=== PATIENT | male | born 1975 | race Caucasian/White ===

== ENCOUNTER 2022-12-09 14:01 | Inpatient (IN) | payer OTHER ==
[~2022-12-09] VITALS: Ht 188 cm; Wt 98.4 kg
--- NOTE | 2022-12-09 14:15 | NUR ---
[id number] C/O PALPITATION X2 HRS AGO AFTER TAKING NALTREXONE HCL. FOR ALCOHOL CESSATION.
--- NOTE | 2022-12-09 14:21 | NUR ---
DR MORRIS AT BEDSIDE FOR EVAL.
[2022-12-09] MEDS ORDERED: IV NS 0.9% 1,000 ML BAG IV ONE (14:30)
[2022-12-09] MEDS ORDERED: LORAZEPAM INJ 2 MG/ML VIAL IV ONE (14:30)
[2022-12-09] MEDS ORDERED: LORAZEPAM INJ 2 MG/ML VIAL ONE (14:32)
--- NOTE | 2022-12-09 14:40 | NUR ---
BLOOD DROW AND SENT TO LAB
[2022-12-09 14:51] LABS: BASOPHILS % (AUTO) 0.3 % (0.0-2.0); EOSINOPHILS % (AUTO) 1.2 % (0.0-6.0); HEMATOCRIT 40 % (39-51); HEMOGLOBIN 13.8 g/dL (13.5-17.5); LYMPHOCYTES # (AUTO) 0.7 K/uL (0.8-4.8); LYMPHOCYTES % (AUTO) 8.8 % (20.0-44.0); MEAN CORPUSCULAR HGB CONC 34 g/dl (31.0-36.0); MEAN CORPUSCULAR VOLUME 95 fL (80-96); MONOCYTES # (AUTO) 0.5 K/uL (0.1-1.30); MONOCYTES % (AUTO) 6.6 % (2.0-12.0); NEUTROPHILS # (AUTO) 6.9 K/uL (1.8-8.9); NEUTROPHILS % (AUTO) 83.1 % (43.0-81.0); PLATELET COUNT (AUTO) 249 K/uL (150-450); RED BLOOD CELL COUNT(AUTO) 4.25 MIL/uL (4.5-6.0); WHITE BLOOD COUNT (AUTO) 8.3 K/uL (4.3-11.0)
[2022-12-09 15:09] LABS: ALANINE AMINOTRANSFERASE 85 U/L (12-78); ALBUMIN 4.3 g/dL (3.4-5.0); ALKALINE PHOSPHATASE 58 U/L (46-116); ASPARTATE AMINOTRANSFERASE 52 U/L (15-37); BILIRUBIN,DIRECT 0.2 mg/dL (0.0-0.2); BILIRUBIN,TOTAL 0.8 mg/dL (0.2-1.0); CALCIUM, SERUM 9.8 mg/dL (8.5-10.1); CARBON DIOXIDE 22 mmol/L (21-32); CHLORIDE 103 mmol/L (98-107); CREATININE 0.9 mg/dL (0.6-1.3); GLUCOSE 142 mg/dL (74-106); POTASSIUM 4.2 mmol/L (3.5-5.1); SODIUM SERUM 139 mmol/L (136-145); TOTAL PROTEIN, SERUM 7.6 g/dL (6.4-8.2); UREA NITROGEN, BLOOD 15 mg/dL (7-18)
--- NOTE | 2022-12-09 15:19 | NUR ---
MARTHA JACKSON ([facility] )
[2022-12-09] MEDS ORDERED: ASPIRIN 325 MG TABLET PO ONE (16:00)
[2022-12-09] MEDS ORDERED: ASPIRIN 325 MG TABLET ONE (16:01)
--- NOTE | 2022-12-09 17:17 | NUR ---
UA SENT TO LAB
--- NOTE | 2022-12-09 18:17 | NUR ---
WATING FOR TELMETERY BED
--- NOTE | 2022-12-09 19:22 | NUR ---
HAND OFF TO VALERIE RIVERS
[2022-12-09 19:33] VITALS: O2SAT 99
--- NOTE | 2022-12-09 19:34 | NUR ---
Denisse AOx4, able to express his concerns. Patient made aware of plan ofcare, verbalized agreement.
--- NOTE | 2022-12-09 19:56 | NUR ---
RM 326-1
[2022-12-09 20:00] VITALS: BP 137/93; TEMP 98.5; O2SAT 97
[2022-12-09] MEDS ORDERED: IV NS 0.9% 1,000 ML IV PRN (20:00)
[2022-12-09] MEDS ORDERED: MORPHINE SULFATE INJ 2 MG/ML DISP.SYRIN IV PRN (20:00)
[2022-12-09] MEDS ORDERED: ACETAMINOPHEN 325 MG TABLET PO PRN (20:00)
[2022-12-09] MEDS ORDERED: ONDANSETRON HCL/PF 4 MG/2 ML VIAL IVP PRN (20:00)
--- NOTE | 2022-12-09 20:11 | NUR ---
SYSTEMS DEVELOPMENT CONSULTANTSECRETARY OF STATE NOTES RECEIVED PATIENT FROM ER AT 2010. PATIENT IS A/O TIMES 4. NO PAIN NOTED. NO SOB NOTED. NO DISTRESS NOTED. ON TELE MONITOR READING SR 67. IV ACCESS ON THE LAC # 20 INTACT AND RUNNING NS AT 75 ML/HR. PATIENT IS AMBULATORY AND ABLE TO MAKE NEEDS KNOWN. NO DISCOMFORT NOTED AT THIS TIME. NO SKIN ISSUE NOTED. ALL THE BELONGINGS ACCOUNTED AND SIGNED FOR. EDUCATE THE PATIENT HOW TO USE CALL LIGHT . PATIENT VERBALIZED UNDERSTANDING. ALL SAFETY MEASURES IN PLACE. BED LOCKED IN THE LOWEST POSITION. CALL LIGHT AN DTABLE IN EASY REACH. SIDE RAILS UP TIMES 2. WILL CONTINUE TO MONITOR CLOSELY.
--- NOTE | 2022-12-09 20:14 | NUR ---
PT TRANSPORTED TO [facility] VIA [facility] Addendum: 12/09/22 at 2018 by MONIE PATIENT TRANSPORTED TO [facility] VIA [facility], WITH EMT AND RN
[2022-12-09] MEDS ORDERED: ENOXAPARIN SODIUM 40 MG/0.4 ML DISP.SYRIN SQ SCH (21:00)
--- NOTE | 2022-12-09 21:00 | NUR ---
RN NOTES AINSLEY FROM LAB CALLED AND REPORTED LACTIC ACID LEVEL OF 2.[address] ROMERO AT 2114 NO NEW ORDER GIVEN.
[2022-12-09] MEDS: IV NS 0.9% 1,000 ML IV SCH (23:03)
[2022-12-10] VITALS: BP 118/71; TEMP 98.4; O2SAT 96
[2022-12-10 04:00] VITALS: BP 127/85; TEMP 98; O2SAT 96
[2022-12-10] MEDS: IV NS 0.9% 1,000 ML IV SCH ×2 (04:05→10:26)
[2022-12-10 06:13] LABS: BASOPHILS % (AUTO) 0.5 % (0.0-2.0); EOSINOPHILS % (AUTO) 3.9 % (0.0-6.0); HEMATOCRIT 39 % (39-51); HEMOGLOBIN 12.6 g/dL (13.5-17.5); LYMPHOCYTES # (AUTO) 1.2 K/uL (0.8-4.8); LYMPHOCYTES % (AUTO) 24.8 % (20.0-44.0); MEAN CORPUSCULAR HGB CONC 33 g/dl (31.0-36.0); MEAN CORPUSCULAR VOLUME 97 fL (80-96); MONOCYTES # (AUTO) 0.5 K/uL (0.1-1.30); MONOCYTES % (AUTO) 11.4 % (2.0-12.0); NEUTROPHILS # (AUTO) 2.8 K/uL (1.8-8.9); NEUTROPHILS % (AUTO) 59.4 % (43.0-81.0); PLATELET COUNT (AUTO) 237 K/uL (150-450); RED BLOOD CELL COUNT(AUTO) 3.99 MIL/uL (4.5-6.0); WHITE BLOOD COUNT (AUTO) 4.7 K/uL (4.3-11.0)
--- NOTE | 2022-12-10 06:55 | NUR ---
BUMBOATER CLOSING NOTES PATIENT IS A/O TIMES 4. NO PAIN NOTED. NO SOB NOTED. NO DISTRESS NOTED. ON TELE MONITOR READING SB 42 WHILE SLEEPING. IV ACCESS ON THE LAC # 20 INTACT AND RUNNING NS AT 175 ML/HR. PATIENT IS AMBULATORY AND ABLE TO MAKE NEEDS KNOWN. NO DISCOMFORT NOTED AT THIS TIME. NO SKIN ISSUE NOTED. REMIND THE PATIENT HOW TO USE CALL LIGHT . PATIENT VERBALIZED UNDERSTANDING. ALL SAFETY MEASURES IN PLACE. BED LOCKED IN THE LOWEST POSITION. ALL DUE MEDS GIVEN ORDER. CALL LIGHT AND TABLE IN EASY REACH. SIDE RAILS UP TIMES 2. WILL ENDORSE FOR BLAIRE.
[2022-12-10 06:57] LABS: ALBUMIN 3.5 g/dL (3.4-5.0); BILIRUBIN,TOTAL 0.6 mg/dL (0.2-1.0); CREATININE 0.7 mg/dL (0.6-1.3); MAGNESIUM 1.8 mg/dL (1.8-2.4); PHOSPHORUS 3.7 mg/dL (2.5-4.9); POTASSIUM 4.2 mmol/L (3.5-5.1); TOTAL PROTEIN, SERUM 6.5 g/dL (6.4-8.2)
[2022-12-10] MEDS ORDERED: FLUO40CA49 PO (07:37)
[2022-12-10 08:00] VITALS: BP 122/87; TEMP 97.8; O2SAT 98
--- NOTE | 2022-12-10 08:36 | NUR ---
FOUNDER AND CHIEF EXECUTIVE OFFICER OPENING NOTE (DAY SHIFT) RECEIVED PATIENT IN BED, AWAKE. PATIENT IS A/O TIMES 4. NO PAIN NOTED. NO SOB NOTED. NO DISTRESS NOTED. ON TELE MONITOR READING SR 68. IV ACCESS ON THE LAC # 20 GAUGE, INTACT, PATENT, AND INFUSING NS AT 175 ML/HR. PATIENT IS AMBULATORY AND ABLE TO MAKE NEEDS KNOWN. GOT UP OOB AND WALKED TO BATHROOM WITH STEADY, STRONG GAIT. NO DISCOMFORT NOTED AT THIS TIME. NO SKIN ISSUE NOTED. PATIENT VERBALIZED UNDERSTANDING OF SAFETY PROTOCOLS. ALL SAFETY MEASURES IN PLACE. BED LOCKED IN THE LOWEST POSITION. CALL LIGHT AND BED SIDE TABLE IN EASY REACH. SIDE RAILS UP TIMES 2. WILL CONTINUE TO MONITOR AND CARE FOR PATIENT PER MD's POC.
[2022-12-10] MEDS ORDERED: ASPIRIN 81 MG TAB.CHEW PO SCH (09:00)
[2022-12-10] MEDS ORDERED: ATORVASTATIN 10 MG TABLET PO SCH (09:00)
[2022-12-10 09:16] LABS: CHOLESTEROL 172 mg/dL (<200); HDL CHOLESTEROL 70 mg/dL (40-60); LDL 86 mg/dL (0-99); TRIGLYCERIDES 69 mg/dL (30-150)
[2022-12-10] MEDS ORDERED: IOHEXOL-350 100 ML VIAL IV ONE (10:51)
[2022-12-10] MEDS ORDERED: IV NS 0.9% 250 ML IV ONE (10:51)
[2022-12-10] MEDS ORDERED: CT SWABBABLE VALVE TRANS SET 1 EA INFUS.SET MC ONE (10:51)
[2022-12-10] MEDS ORDERED: NITROGLYCERIN 0.4 MG/TAB BOTTLE ONE (10:51)
[2022-12-10 12:00] VITALS: BP 124/76; TEMP 98; O2SAT 98
--- NOTE | 2022-12-10 14:42 | NUR ---
VENEER SUPERVISORFITNESS CONSULTANT TO HOME NOTE Patient tolerated well the removal of the #20 gauge PIV catheter fully intact from his left antecubital fossa space without any signs of complications of IV therapy. Patient demonstrated understanding of discharge home care instructions using the teach back method in his own words. Patient departed the [facility] of [facility], on foot walking with steady gait to private car bound for his home at 14:30 hours.
== END 2022-12-10 14:30 | disposition home or self-care (01) | DRG 281 ==
LOC: ER 14:49 → TELE 19:59
PROVIDERS: ADMIT Internal Medicine
DX: R00.2 Palpitations (principal); I21.A1 Myocardial infarction type 2; E87.20 Acidosis, unspecified; Z88.0 Allergy status to penicillin; F41.9 Anxiety disorder, unspecified; F41.0 Panic disorder [episodic paroxysmal anxiety]; F19.90 Other psychoactive substance use, unspecified, uncomplicated
CPT/HCPCS: 36415; 71045-TC; 75574; 80048-TC; 80053-TC; 80061-TC; 80076-TC; 82550-TC; 82553; 83605-TC; 83735-TC; 84100-TC; 84484-TC; 85025-TC; 85378-TC; 93307-TC; A4223; G0378; J1650; J2060; J7030; J7050; Q9967